=== PATIENT | female | born 1985 | race Caucasian/White ===

== ENCOUNTER 2020-09-26 01:24 | Emergency (ER) | payer BC ==
[~2020-09-26] VITALS: Ht 162.6 cm; Wt 77.1 kg
[2020-09-26 01:45] VITALS: BP 126/77
--- NOTE | 2020-09-26 01:48 | NUR ---
TO CHAIR A AMBULATORY
--- NOTE | 2020-09-26 02:04 | NUR ---
Dr. Guido examining patient.
[2020-09-26] MEDS ORDERED: MORPHINE SULFATE 2 MG/ML SYR IVP ONE (02:30)
[2020-09-26] MEDS ORDERED: PANTOPRAZOLE 40 MG INJ VIAL IVP ONE (02:30)
[2020-09-26] MEDS ORDERED: ONDANSETRON 4 MG/2 ML VIAL IVP ONE (02:30)
[2020-09-26] MEDS ORDERED: ONDANSETRON 4 MG/2 ML VIAL IM ONE (02:35)
[2020-09-26] MEDS ORDERED: MORPHINE SULFATE 4 MG/ML SYR IM ONE (02:35)
[2020-09-26 02:49] LABS: BASOPHILS % (AUTO) 0.2 % (0.0-2.0); EOSINOPHILS % (AUTO) 0.3 % (0.0-4.0); HEMATOCRIT 35.8 % (36-48); HEMOGLOBIN 12.1 g/dL (12.0-16.0); LYMPHOCYTES # (AUTO) 0.7 K/uL (2.5-16.5); MEAN CORPUSCULAR HEMOGLOBIN 30 pg (27-31); MEAN CORPUSCULAR HGB CONC 34 g/dL (33-37); MEAN CORPUSCULAR VOLUME 88.1 fL (80-94); MONOCYTES # (AUTO) 0.4 K/uL (0.8-1.0); MONOCYTES % (AUTO) 5.2 % (1.7-9.3); NEUTROPHILS # (AUTO) 6.2 K/uL (1.8-7.7); NEUTROPHILS % (AUTO) 85.3 % (42.2-75.2); PLATELET COUNT (AUTO) 230 K/uL (140-450); RED BLOOD CELL COUNT(AUTO) 4.07 MIL/uL (4.20-5.40); RED CELL DISTRIBUTION WIDTH 12.9 % (11.6-13.7); WHITE BLOOD COUNT (AUTO) 7.3 K/uL (4.8-10.8)
[2020-09-26 03:13] LABS: APPEARANCE,URINE CLOUDY (CLEAR); BILIRUBIN,URINE 3+ (NEGATIVE); BLOOD, URINE 3+ (NEGATIVE); COLOR,URINE DARK YELLOW (YELLOW); LEUKOCYTE ESTERASE ,URINE NEGATIVE (NEGATIVE); NITRITE, URINE NEGATIVE (NEGATIVE); UGLUCOSE TRACE (NEGATIVE)
[2020-09-26 03:14] LABS: BARBITURATE, URINE NEGATIVE ng/ml (NEG <=200); BENZODIAZEPINE, URINE NEGATIVE ng/mL (NEG <=200); CANNABINOID, URINE NEGATIVE ng/mL (NEG <=50); COCAINE, URINE NEGATIVE ng/mL (NEG <=300); OPIATE, URINE POSITIVE ng/mL (NEG <=2000); PHENCYCLIDINE SCREEN,URINE NEGATIVE ng/mL (NEG <=25)
[2020-09-26 03:30] LABS: ALBUMIN 3.8 g/dL (3.4-5.0); ANION GAP 12.5 (8-16); CARBON DIOXIDE 28.9 mmol/L (21-32); CREATININE 0.7 mg/dL (0.6-1.3); POTASSIUM 3.4 mmol/L (3.5-5.1); TOTAL BILIRUBIN 2.3 mg/dL (0.0-1.0)
--- NOTE | 2020-09-26 03:35 | NUR ---
Caitlyn woodruff in ED - 09/26/20 at 0336 by MELISSA PT RETURN FROM RADIOLOGY
--- NOTE | 2020-09-26 03:35 | NUR ---
PT RETURN FROM RADIOLOGY
[2020-09-26] MEDS ORDERED: diphenhydrAMINE 50 MG/ML VIAL IVP ONE (03:40)
--- NOTE | 2020-09-26 03:42 | NUR ---
PATIENT PRESENTS TO ED WITH ABD PAIN , NAUSEA STARTED AT 2230 HOURS, POST CHOLECYSTECTOMY. DENIES N/V/D; SKIN IS PINK/WARM/DRY; AAOX4 WITH EVEN AND STEADY GAIT; LUNGS CLEAR BL; HR EVEN AND REGULAR; PT DENIES ANY FEVER, CP, SOB, OR COUGH AT THIS TIME; PATIENT STATES PAIN OF 10/10 AT THIS TIME; VSS; PATIENT POSITIONED FOR COMFORT; HOB ELEVATED; BEDRAILS UP X2; BED DOWN. ER MD MADE AWARE OF PT STATUS.
[2020-09-26 05:14] LABS: WBC,URINE 0-5 /HPF (0-5)
[2020-09-26 06:01] VITALS: BP 122/76
--- NOTE | 2020-09-26 06:01 | NUR ---
Patient discharged with v/s stable. Written and verbal after care instructions given and explained. Patient alert, oriented and verbalized understanding of instructions. Ambulatory with steady gait. All questions addressed prior to discharge. ID band removed. Patient advised to follow up with PMD. Rx of PROTONIX given. Patient educated on indication of medication including possible reaction and side effects. Opportunity to ask questions provided and answered.
== END 2020-09-26 06:01 | disposition home or self-care (01) ==
LOC: MED 01:24
DX: R10.13 Epigastric pain (principal)
CPT/HCPCS: 36415; 74176; 80053; 80305; 81001; 81025; 83605; 83690; 84484; 85025; 93005; 96372; 99285; J2270; J2405